=== PATIENT | female | born 1995 | race African-American/Black ===

== ENCOUNTER 2020-07-23 13:19 | Emergency (ER) | payer MEDICAID ==
[~2020-07-23] VITALS: Ht 157.5 cm; Wt 57.0 kg
[2020-07-23] MEDS ORDERED: BACITRACIN ZINC OINT UDPKT TOP ONE (14:15)
[2020-07-23] MEDS ORDERED: TETANUS, DIPHTHERIA, PERTUSSIS VAC/PF 0.5ML (>7YR OLD) IM ONE (14:15)
[2020-07-23] MEDS ORDERED: HYDROCODONE/ACETAMINOPHEN 5/325MG TABLET PO ONE (14:15)
[2020-07-23] MEDS ORDERED: LIDOCAINE HCL/PF 1% 10 MG/ML 5ML VIAL IJ ONE (14:15)
[2020-07-23 16:12] LABS: HCG SCREEN NEGATIVE
[2020-07-23 16:13] VITALS: BP 113/82
[2020-07-23] MEDS ORDERED: AMOXICILLIN/POTASSIUM CLAVULANATE 875/125MG TAB PO ONE (16:15)
== END 2020-07-23 17:44 | disposition home or self-care (01) ==
LOC: ER 13:25
DX: S02.2XXA Fracture of nasal bones, initial encounter for closed fracture (principal); S81.011A Laceration without foreign body, right knee, initial encounter; S05.10XA Contusion of eyeball and orbital tissues, unspecified eye, initial encounter; S00.81XA Abrasion of other part of head, initial encounter; S00.511A Abrasion of lip, initial encounter; J45.909 Unspecified asthma, uncomplicated; I10 Essential (primary) hypertension; V49.88XA Car occupant (driver) (passenger) injured in other specified transport accidents, initial encounter; Y93.89 Activity, other specified; Y92.89 Other specified places as the place of occurrence of the external cause; Y99.8 Other external cause status
CPT/HCPCS: 12001; 70450; 70486; 71045; 72125; 81025; 84703; 90471; 90715; 93005; 99285; A4217; J3490; Z7610